=== PATIENT | male | born 1995 | race Caucasian/White ===

== ENCOUNTER 2018-01-29 09:21 | Inpatient (IN) | payer OTHER ==
[2018-01-29] VITALS (19 sets, daily range): BP systolic 110–155; BP diastolic 56–103
[~2018-01-29] VITALS: Ht 165.1 cm; Wt 79.1 kg
[2018-01-29] MEDS ORDERED: ALBUTEROL (0.083%) 2.5MG/3ML NEB HHN STA (09:34)
[2018-01-29] MEDS ORDERED: SODIUM CHLORIDE 0.9% 1,000 ML IV ONE (09:34)
[2018-01-29] MEDS ORDERED: NALOXONE HCL 1 MG/ML 2ML VIAL IV ONE (09:45)
[2018-01-29 09:55] LABS: BASOPHILS % 0.9 % (0.0-2.0); EOSINOPHILS % 1.2 % (0.0-5.0); HEMATOCRIT. 40.9 % (42.0-52.0); HEMOGLOBIN. 13.9 g/dL (14.0-18.0); LYMPHOCYTES % 46.2 % (20.0-50.0); MEAN CORPUSCULAR HEMOGLOBIN 28.1 pg (28.0-32.0); MEAN CORPUSCULAR VOLUME 82.9 fL (80.0-94.0); MEAN PLATELET VOLUME 8.8 fl (7.4-10.4); MONOCYTES % 5.1 % (2.0-8.0); NEUTROPHILS % 46.6 % (40.0-76.0); PLATELET 299 x1000/uL (130-400); RED BLOOD CELL COUNT 4.93 mill/uL (4.7-6.1); RED CELL DISTRIBUTION WIDTH 13.7 % (11.6-14.6)
[2018-01-29 10:00] LABS: CHLORIDE 102 mEq/L (98-107)
[2018-01-29 10:06] LABS: ETHANOL BLOOD < 10 mg/dL
[2018-01-29 13:35] LABS: CLARITY URINE CLEAR (CLEAR); COLOR URINE YELLOW (YELLOW); KETONES URINE 2+ (NEGATIVE); LEUKOCYTE ESTERASE URINE NEGATIVE (NEGATIVE); NITRITE URINE NEGATIVE (NEGATIVE); OCCULT BLOOD URINE TRACE (NEGATIVE); PROTEIN URINE NEGATIVE (NEGATIVE); SPECIFIC GRAVITY URINE 1.027 (1.005-1.030); UROBILINOGEN URINE 0.2 E.U./dL (0.2-1.0)
[2018-01-29 14:08] LABS: *AMPHETAMINES SCREEN URINE NEGATIVE (NEGATIVE); *BARBITURATES SCREEN URINE NEGATIVE (NEGATIVE); *BENZODIAZEPINES SCREEN URINE NEGATIVE (NEGATIVE); *COCAINE SCREEN URINE NEGATIVE (NEGATIVE); CANNABINOID URINE SCREEN NEGATIVE (NEGATIVE); PHENCYCLIDINE URINE SCREEN NEGATIVE (NEGATIVE)
[2018-01-29 14:09] LABS: METHADONE URINE SCREEN NEGATIVE (NEGATIVE)
[2018-01-29 14:11] LABS: OPIATES URINE SCREEN NEGATIVE (NEGATIVE)
[2018-01-29] MEDS ORDERED: NALOXONE 4 MG in SODIUM CHLORIDE 0.9% 246 ML IV NR (15:15)
[2018-01-29] MEDS ORDERED: ACETAMINOPHEN 325MG TABLET PO PRN (16:45)
[2018-01-29] MEDS ORDERED: ONDANSETRON HCL 4MG/2ML INJ IV PRN (16:45)
[2018-01-29] MEDS ORDERED: MAGNESIUM/ALUMINUM HYDROXIDE/SIMETHICONE 30ML UDC PO PRN (16:45)
[2018-01-29] MEDS ORDERED: GUAIFENESIN 200MG/10ML SUGAR FREE UDC PO PRN (16:45)
[2018-01-29] MEDS ORDERED: HYDROCODONE/ACETAMINOPHEN 5/325MG TABLET PO PRN (16:45)
[2018-01-29] MEDS ORDERED: IPRATROPIUM/ALBUTEROL 0.5-3(2.5)MG/3ML NEB INH PRN (16:45)
[2018-01-29] MEDS ORDERED: DOCUSATE SODIUM 100MG CAPSULE PO PRN (16:45)
[2018-01-29] MEDS ORDERED: CLONIDINE 0.1MG TABLET PO PRN (16:45)
[2018-01-29] MEDS ORDERED: NA PHOS,M-B/NA PHOS,DI-BA ENEMA 118ML PR PRN (16:45)
[2018-01-29] MEDS: SODIUM CHLORIDE 0.45% 1,000 ML IV SCH (17:27)
[2018-01-29] MEDS: ENOXAPARIN 40MG/0.4ML SYR SUBCUT SCH (17:27)
[2018-01-29] MEDS: ASPIRIN 81MG EC TABLET PO SCH (17:27)
[2018-01-29 19:46] LABS: CHLORIDE 107 mEq/L (98-107)
[2018-01-30] VITALS (18 sets, daily range): BP systolic 95–117; BP diastolic 42–71
[2018-01-30] MEDS: SODIUM CHLORIDE 0.45% 1,000 ML IV SCH (03:01)
[2018-01-30] MEDS: DIPHENHYDRAMINE 50MG/ML VIAL IV PRN ×2 (03:06→08:16)
[2018-01-30 06:39] LABS: BASOPHILS % 0.7 % (0.0-2.0); EOSINOPHILS % 1.7 % (0.0-5.0); HEMATOCRIT. 35.7 % (42.0-52.0); HEMOGLOBIN. 12.1 g/dL (14.0-18.0); LYMPHOCYTES % 51.9 % (20.0-50.0); MEAN CORPUSCULAR HEMOGLOBIN 28.4 pg (28.0-32.0); MEAN CORPUSCULAR VOLUME 83.4 fL (80.0-94.0); MEAN PLATELET VOLUME 8.4 fl (7.4-10.4); MONOCYTES % 6.7 % (2.0-8.0); PLATELET 256 x1000/uL (130-400); RED BLOOD CELL COUNT 4.28 mill/uL (4.7-6.1); RED CELL DISTRIBUTION WIDTH 13.5 % (11.6-14.6)
[2018-01-30 06:46] LABS: CHLORIDE 107 mEq/L (98-107)
[2018-01-30 06:56] LABS: LDL CHOLESTEROL 87 mg/dL (5-100)
[2018-01-30 06:58] LABS: HDL CHOLESTEROL 25 mg/dL (40-59); T4 FREE 1.01 ng/dL (0.76-1.46)
[2018-01-30 08:10] LABS: PHOSPHORUS 3.2 mg/dL (2.5-4.9)
[2018-01-30] MEDS: ASPIRIN 81MG EC TABLET PO SCH (08:16)
[2018-01-30] MEDS ORDERED: POTASSIUM CHLORIDE 20MEQ TABLET SR PO SCH (09:15)
[2018-01-30] MEDS: ENOXAPARIN 40MG/0.4ML SYR SUBCUT SCH (17:25)
[2018-01-30] MEDS: LORAZEPAM 2MG/ML CPJ IV PRN (20:28)
[2018-01-31] VITALS: BP 107/68
[2018-01-31 04:00] VITALS: BP 99/63
[2018-01-31 08:00] VITALS: BP 107/66
[2018-01-31] MEDS: ASPIRIN 81MG EC TABLET PO SCH (09:00)
[2018-01-31 12:00] VITALS: BP 104/62
[2018-01-31] MEDS: LORAZEPAM 2MG/ML CPJ IV PRN (12:00)
[2018-01-31 14:16] LABS: HEPATITIS B SURFACE ANTIGEN NEGATIVE
[2018-01-31 14:45] LABS: HEPATITIS A AB IGM NEGATIVE (NEGATIVE)
[2018-01-31 16:00] VITALS: BP 110/60
[2018-01-31 16:54] VITALS: BP 110/60
[2018-01-31] MEDS: ENOXAPARIN 40MG/0.4ML SYR SUBCUT SCH (17:00)
[2018-02-02 13:11] LABS: HIV SCREEN 4G Non Reactive (Non Reactive)
== END 2018-01-31 18:03 | disposition home or self-care (01) | DRG 917 ==
LOC: ER 09:21 → CVICU 13:58 → EDBEDREQ 14:01 → ENRESERV 14:18 → 7WST 01-30 11:51
PROVIDERS: ADMIT Emergency Medicine; ATTEND Emergency Medicine
DX: T40.1X1A Poisoning by heroin, accidental (unintentional), initial encounter (principal); G92 Toxic encephalopathy; J96.00 Acute respiratory failure, unspecified whether with hypoxia or hypercapnia; Z87.891 Personal history of nicotine dependence; J45.909 Unspecified asthma, uncomplicated; T40.4X1A Poisoning by other synthetic narcotics, accidental (unintentional), initial encounter; Y92.89 Other specified places as the place of occurrence of the external cause; R74.0 Nonspecific elevation of levels of transaminase and lactic acid dehydrogenase [LDH]; F11.10 Opioid abuse, uncomplicated
CPT/HCPCS: 36415; 71045; 80048; 80061; 80076; 80305; 80307; 80329; 83735; 84100; 84439; 84443; 84484; 86705; 86709; 86803; 87340; 87389; 93005; 93306; 96365; 96375; 99291; G0482; J1200; J1650; J2060; J2310; J7030; J7050; J7611